=== PATIENT | male | born 1965 | race Caucasian/White ===

== ENCOUNTER 2020-07-01 18:34 | Outpatient (CLI) | payer BC | END 2020-07-01 18:35 | disposition home or self-care (01) | LOC: COV 18:34 | PROVIDERS: ATTEND Family Medicine | DX: M79.10 Myalgia, unspecified site (principal); R53.83 Other fatigue; R68.83 Chills (without fever); Z20.828 Contact with and (suspected) exposure to other viral communicable diseases ==